=== PATIENT | male | born 1970 | race Caucasian/White ===

== ENCOUNTER 2016-03-26 06:36 | Day surgery (SDC) | payer MEDICAID ==
[2016-03-25 15:42] LABS: HEMATOCRIT 46.4 % (42.0-54.0); HEMOGLOBIN 15.3 g/dL (13.5-17.5); MCH 29.1 pg (26.0-34.0); MCV 88.2 fL (80.0-100.0); MEAN PLATELET VOLUME 10.8 fL (7.4-10.4); RBC 5.26 10x6/uL (4.20-6.10); RDW 15.2 % (11.5-14.5); WBC 8.6 10x3/uL (4.8-10.8)
[~2016-03-26] VITALS: Ht 180.3 cm; Wt 145.1 kg
[~2016-03-26 06:36] MED LIST: ABILIFY15 MG PO; ADVAIR 100/501 DISK INH; ATIVAN1 MG PO; BAYER CHEWABLE81 MG PO; COREG 3.1253.125 MG PO; CYMBALTA20 MG PO; HYDROCODONE-APA1 TAB PO; SYNTHROID175 MCG PO; VENTOLIN HFA18 GM INH; VENTOLIN/PR2 MG/5 ML PO; XANAX1 MG PO
[2016-03-26 07:45] VITALS: Ht 180.3 cm; Wt 145.1 kg
[2016-03-26] MEDS ORDERED: CYCLOBENZAPRINE10 MG PO (10:08)
[2016-03-26] MEDS ORDERED: HYDROCODONE-APA1 TAB PO (10:08)
--- NOTE | 2016-03-26 12:38 | NUR ---
1200CO PAIN PAIN MED GIVEN IV DC WITH CATHER TIP INTACT
--- NOTE | 2016-04-08 08:25 | HP ---
PATIENT: RUTHIE DICKEY MEDICAL RECORD: [id number] ACCOUNT: [id number] LOCATION:ROYAL : 74 ADMISSION DATE: 03/26/16 HISTORY AND PHYSICAL EXAMINATION HISTORY OF PRESENT ILLNESS: This is a 45-year-old gentleman who has been having shoulder pain. This has gone on 1st significant amount of time. He has had injections without relief. The recent injections have given him relief, but they continued to bother him. He at this juncture wants to proceed with a shoulder scope. He has history of arthritis of his knees. He has had sub-luxation of his patella with significant degenerative changes of his knees. He has had a trigger finger. He has taken Advair, alprazolam, Flovent, hydrocodone, hydroxyzine, imipramine, and Invega. He has had Kenalog injections. He has taken Latuda, levothyroxine, Naprosyn and triamcinolone ointment. He has no allergies. He has had a history of asthma, chest pain, depression and mental disorders as well as sleep apnea. He has previously had bilateral lateral releases of his knees, but has continued knee pain. He smokes daily. PHYSICAL EXAMINATION: VITAL SIGNS: His height 5 feet 11 inches, weight 320. Blood pressure 129/91 and pulse 96. HEENT: Within normal limits. CARDIOVASCULAR: Regular rate and rhythm. LUNGS: Clear. ABDOMEN: Benign. PHYSICAL EXAMINATION: Shoulder reveals painful forward flexion, painful abduction and external rotation. He has painful cross body adduction. He is tender at the acromion and the AC joint. There is no distinct weakness to abduction, internal or external rotation. He has decreased motion. He forward flexes to about 110 degrees, externally rotates 25 degrees, abducted to 90 degrees abduction, the external rotates to 45 degrees, the internal rotation just to the flank at 90 degrees, the internal rotation is about 30 degrees. His abduction to 110 degrees. Positive Durán and positive Neer's. ASSESSMENT: Left shoulder impingement, acromioclavicular joint degenerative joint disease and possible rotator cuff tear. We will go ahead and get him on the schedule for arthroscopy. TRANSINT:[id number] Voice Confirmation ID: [id number] DOCUMENT ID: [id number] HEMALATHA CHAPIN MD at 0825 CC: [id number] DICTATION DATE: 03/26/16 1003 MAGNETO ELECTRICIAN: 03/26/[address] [facility] 03/26/16 [id number] [place] [address]
--- NOTE | 2016-04-08 08:25 | OP ---
PATIENT NAME: RUTHIE DICKEY MEDICAL RECORD: [id number] :74 LOCATION:D.OPS ADMISSION DATE: SURGEON: HEMALATHA CHAPIN MD DATE OF OPERATION: 03/26/2016 PREOPERATIVE DIAGNOSES: Left shoulder impingement, left shoulder acromioclavicular joint degenerative joint disease and labral tear. POSTOPERATIVE DIAGNOSES: Left shoulder impingement, left shoulder acromioclavicular joint degenerative joint disease and labral tear. PROCEDURE PERFORMED: Left shoulder small labral debridement, distal clavicle excision and subacromial decompression. SURGEON: Sukhwinder Chapin MD ANESTHESIA: General with interscalene block for postop pain. CONDITION: The patient tolerated the procedure well, was transferred to the recovery room in stable condition at termination of the procedure. INDICATIONS: This is a 45-year-old gentleman who has had continued pain in his shoulder. He said at some therapy. He has had injections. This was held, but it does not resolve it. He continues to go on with the pain. He presents now wanting to go ahead and proceed with surgery. We discussed risks, benefits, and alternatives including continued pain. He understood and wished to proceed. OPERATIVE REPORT: The patient was taken to the operating room and placed in supine position. General anesthesia was obtained. His left shoulder was confirmed to be the correct shoulder. He was then prepped and draped in normal fashion. Portal sites were marked and injected with 0.25% Marcaine with epinephrine. I established the scope in the posterior portal. I established an anterior portal under direct visualization with a needle localization. I then proceeded to scope with the shaver. I was able to debride some of the labrum, glenohumeral joint looked very good. Biceps tendon did not have any lesions. Following the biceps tendon down, I could not see any tears and following the cuff around. His subscap looked very good. His anterior supraspinatus looked very good. The infraspinatus looked very good. I therefore brought the scope out, placed it in the subacromial space and took off some of the soft tissue with the shaver and then the Renee. I then started to use the negar. For some reason, the bur continued to increase the pressure of the water. I therefore, did go and short the spurs because of the changes it was causing on a water pressures. This was finally resolved. We did get some soft tissue swelling from the water infusion. I did take off his subacromial area and through the anterior portal was a distal clavicle. Once this was accomplished, the case was brought to a close. He was closed with 3-0 Prolene. He was placed in a sling. He was awakened and transferred to the recovery room in stable condition. TRANSINT:[id number] Voice Confirmation ID: [id number] DOCUMENT ID: [id number] OPERATIVE REPORT [id number] RUTHIE DICKEY, HEMALATHA HOGAN MD at 0825 CC: [id number] DICTATION DATE: 03/26/16 [address] [employer] PILOT: 03/26/16 1106 [facility] 03/26/16 [id number] [place] [address]
== END 2016-03-26 12:30 | disposition home or self-care (01) ==
LOC: D.OPS 06:36 → D.PAN 08:00 → D.OPS 08:30 → D.PAN 08:30 → D.OPS 08:45
PROVIDERS: Anesthesiology
DX: M75.42 Impingement syndrome of left shoulder (principal); M19.012 Primary osteoarthritis, left shoulder; S43.402A Unspecified sprain of left shoulder joint, initial encounter; J45.909 Unspecified asthma, uncomplicated; F32.9 Major depressive disorder, single episode, unspecified; G47.30 Sleep apnea, unspecified; F17.200 Nicotine dependence, unspecified, uncomplicated

== ENCOUNTER 2016-04-22 17:28 | Emergency (ER) | payer MEDICAID ==
[2016-03-26 07:45] VITALS: BMI 44.7
[~2016-04-22 17:28] MED LIST changes: +CYCLOBENZAPRINE10 MG PO
== END 2016-04-22 18:19 | disposition left against medical advice (07) ==
LOC: D.ER 17:28
DX: R10.30 Lower abdominal pain, unspecified (principal); F41.9 Anxiety disorder, unspecified; J44.9 Chronic obstructive pulmonary disease, unspecified

== ENCOUNTER 2016-06-07 22:04 | Emergency (ER) | payer MEDICAID ==
[2016-03-26 07:45] VITALS: BMI 44.7
[2016-06-07 23:10] LABS: BASOPHILS 0.3 % (0.0-2.0); EOSINOPHILS 1.5 % (0-7); HEMATOCRIT 44.6 % (42.0-54.0); HEMOGLOBIN 15.1 g/dL (13.5-17.5); IMMATURE GRANULOCYTES 0.3 % (0-5); LYMPHOCYTES 44.4 % (15-50); MCH 30.2 pg (26.0-34.0); MCHC 33.9 g/dL (31.0-37.0); MCV 89.2 fL (80.0-100.0); MEAN PLATELET VOLUME 10.8 fL (7.4-10.4); MONOCYTES 5.9 % (2-11); NEUTROPHILS 47.6 % (40-80); PLATELET COUNT 165 10x3/uL (130-400); RDW 15.7 % (11.5-14.5); WBC 8.8 10x3/uL (4.8-10.8)
[2016-06-07 23:38] LABS: ALKALINE PHOSPHATASE 124 U/L (46-116); ALT (SGPT) 65 U/L (10-68); BILIRUBIN - TOTAL 0.42 mg/dL (0.2-1.3); CALC OSMOLALITY 277 mosm/kg (275-300); CALCIUM 9.3 mg/dL (8.5-10.1); CARBON DIOXIDE 29.5 mmol/L (21.0-32.0); CHLORIDE - SERUM 102 mmol/L (98-107); CREATININE - SERUM 1.1 mg/dL (0.6-1.3); GLUCOSE 105 mg/dL (74-106); POTASSIUM - SERUM 3.4 mmol/L (3.5-5.1); PROTEIN - SERUM 8.5 g/dL (6.4-8.2); SODIUM 140 mmol/L (136-145); UREA NITROGEN 11 mg/dL (7-18); eGFR NON AFRICAN AMERICAN 78 mL/min (90-120)
[2016-06-07 23:43] LABS: PRO BNP 47 pg/mL (0-125); TROPONIN-I 0.019 ng/mL (0.000-0.060)
== END 2016-06-08 00:44 | disposition home or self-care (01) ==
LOC: D.ER 22:04
PROVIDERS: Family Medicine
DX: J44.1 Chronic obstructive pulmonary disease with (acute) exacerbation (principal); J20.9 Acute bronchitis, unspecified; J06.9 Acute upper respiratory infection, unspecified; F41.9 Anxiety disorder, unspecified; J44.9 Chronic obstructive pulmonary disease, unspecified; E03.9 Hypothyroidism, unspecified; E78.5 Hyperlipidemia, unspecified; E78.00 Pure hypercholesterolemia, unspecified; F17.200 Nicotine dependence, unspecified, uncomplicated

== ENCOUNTER 2017-07-15 05:32 | Day surgery (SDC) | payer MEDICAID ==
[~2017-07-15] VITALS: Ht 180.3 cm; Wt 146.5 kg
--- NOTE | ~2017-07-15 | OP ---
PATIENT NAME: RUTHIE DICKEY MEDICAL RECORD: [id number] :74 LOCATION:D.OPS ADMISSION DATE: SURGEON: BAM EDEN MD DATE OF OPERATION: 07/15/2017 PREOPERATIVE DIAGNOSES: 1. 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 2. Condyloma on an external hemorrhoid, right. POSTOPERATIVE DIAGNOSES: 1. 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 2. Condyloma on an external hemorrhoid, right. 3. Anal nodular skin lesion at 7 o'clock with the patient in the lithotomy position. PROCEDURE: 1. Excisional biopsy of left buttock skin lesion, likely condyloma, but this could also represent a squamous cell carcinoma within a condyloma. The dimensions of the excision, including margins, measured 6.2 x 4.8 cm. This was an intermediate closure. 2. Excisional biopsy of condyloma on an external hemorrhoid at 9 o'clock. 3. Excisional biopsy of nodular skin lesion at the anal verge at 7 o'clock. SURGEON: Bam Eden MD PHP WEB DEVELOPER: None. BLOOD LOSS: 50 cc. ANESTHESIA: General. COMPLICATIONS: None. The risks, possible complications and alternatives to the procedure were explained to the patient. He elects to proceed. OPERATIVE COURSE: The patient was conveyed to the operating room electively on 07/15/2017. General anesthesia was induced by the anesthesia staff. The patient was placed in the lithotomy position. The buttocks and anus were sterilely prepped and draped. I grasped the condyloma on the external hemorrhoid at 9 o'clock. I then excised this condyloma utilizing the Harmonic scalpel. No sutures were needed. I then placed U-shaped anal retractors within the anus. I noted no evidence of an anal fistula. No evidence of an anal fissure. There was a nodular anal lesion at 7 o'clock. This was removed by grasping it and excising it with the Harmonic scalpel. No suture closure was necessary. Through the use of double curvilinear incisions, I excised the skin and subcutaneous tissues around a condyloma of the left buttock. Some additional indurated tissue was excised at the base of the excision. The subcutaneous flaps were created sharply. The dimensions of the excision are listed above. The subdermis was approximated with interrupted 2-0 Vicryl sutures. The skin was approximated with multiple interrupted 2-0 horizontal mattress Vicryls. Sterile dressings were applied. OPERATIVE REPORT [id number] RUTHIE DICKEY The patient was then extubated and conveyed to the post-anesthesia care unit where he was in stable condition. He will be dismissed home on [place] as well as Keflex. I will see him in the office in 2-3 weeks. TRANSINT:[id number] Voice Confirmation ID: [id number] DOCUMENT ID: [id number] CC: Libby Monzon APN, [facility] [place] BAM EDEN MD at 1157 CC: [id number] DICTATION DATE: 07/15/17 0957 SOFTWARE ASSET MANAGEMENT ANALYST: 07/15/17 1244 [facility] 07/15/17 [id number] [place] [address]
[~2017-07-15 05:32] MED LIST changes: +REXULTI1 MG PO
[2017-07-15 06:26] LABS: HEMATOCRIT 45.1 % (42.0-54.0); HEMOGLOBIN 14.6 g/dL (13.5-17.5); MCH 30.2 pg (26.0-34.0); MCHC 32.4 g/dL (31.0-37.0); MCV 93.2 fL (80.0-100.0); MEAN PLATELET VOLUME 10.5 fL (7.4-10.4); RBC 4.84 10x6/uL (4.20-6.10); RDW 14.7 % (11.5-14.5); WBC 7.2 10x3/uL (4.8-10.8)
[2017-07-15 06:37] VITALS: BP 104/63; Ht 180.3 cm; Wt 146.5 kg
== END 2017-07-15 11:45 | disposition home or self-care (01) ==
LOC: D.OPS 05:32 → D.PAN 08:00 → D.OPS 11:45
PROVIDERS: Anesthesiology
DX: A63.0 Anogenital (venereal) warts (principal); I25.2 Old myocardial infarction; I10 Essential (primary) hypertension; E78.00 Pure hypercholesterolemia, unspecified; J44.9 Chronic obstructive pulmonary disease, unspecified; J45.909 Unspecified asthma, uncomplicated; F17.200 Nicotine dependence, unspecified, uncomplicated; F41.9 Anxiety disorder, unspecified; M19.90 Unspecified osteoarthritis, unspecified site; E03.9 Hypothyroidism, unspecified; Z01.812 Encounter for preprocedural laboratory examination

== ENCOUNTER → 2017-09-22 08:37 | Outpatient (CLI) | payer MEDICAID ==
[2017-07-15 06:37] VITALS: BMI 45.1
[2017-09-23 11:19] LABS: IMMUNOGLOBULIN A 209 mg/dL (90-386); IMMUNOGLOBULIN G 1695 mg/dL (700-1600)
[2017-09-24 20:07] LABS: IMMUNOGLOBULIN E 57 IU/mL (0-100)
== END | disposition home or self-care (01) ==
LOC: D.RT 08:00
PROVIDERS: Internal Medicine Pulmonary Disease
DX: J44.9 Chronic obstructive pulmonary disease, unspecified (principal)

== ENCOUNTER → 2017-11-03 10:39 | Outpatient (CLI) | payer MEDICAID ==
[2017-07-15 06:37] VITALS: BMI 45.1
== END | disposition home or self-care (01) ==
LOC: D.RT 10-25 14:30
DX: J44.9 Chronic obstructive pulmonary disease, unspecified (principal)

== ENCOUNTER 2018-01-25 16:31 | Inpatient (IN) | payer MEDICAID ==
[~2018-01-25] VITALS: Ht 180.3 cm; Wt 160.2 kg
--- NOTE | ~2018-01-25 | MORECARE ---
CASE MANAGEMENT DISCHARGE SUMMARY PATIENT: RUTHIE DICKEY KAMARI UNIT: [id number] ADM DATE: 01/25/18 AGE: 47 : 74 SEX: M ROOM/BED: D.2132 AUTHOR: ADAN MCGARRY PHYSICIAN: REFERRING PHYSICIAN: SOPHIE BA MD DATE OF SERVICE: 01/30/18 Discharge Plan Patient Name: RUTHIE DICKEY [facility] [place] : 1970 Planned Disposition: Home Anticipated Discharge Date: 01/29/18 Discharge Date: 01/29/2018 Expected LOS: 4 Initial Reviewer: [email or web address] Initial Review Date: 01/30/2018 Generated: 01/30/18 10:23 am Patient Name: RUTHIE DICKEY Page [id number] at 0923 All edits/amendments must be made on the electronic document DICTATION DATE: 01/30/18922 [employer] AIRCRAFT MECHANIC: GEOVANY 01/30/18922 RPT#: [id number] DC DATE:01/29/18 STATUS: DIS IN [facility] [address] [place] [address] END OF REPORT
--- NOTE | ~2018-01-25 | EC ---
PATIENT:RUTHIE DICKEY DATE OF SERVICE: 01/25/18 SEX: M MEDICAL RECORD: [id number] DATE OF : 74 LOCATION:D. D.213 AGE OF PATIENT: 47 ADMISSION DATE: 01/25/18 REFERRING PHYSICIAN: INTERPRETING PHYSICIAN: ASHLIE DELGADO MD ECHOCARDIOGRAM REPORT ECHO CHARGES 4 ECHO COMPLETE Date: 01/26/18 CLINICAL DIAGNOSIS: DYSPNEA ECHOCARDIOGRAPHIC MEASUREMENTS (adult normal given) AC root (d.<3.7cm) 4.7 cm LV Septum d (<1.2 cm> 2.0 cm Valve Excursion 1.9 cm LV Septum (systole) 2.4 cm Left Atria (s.<4.0cm> 4.7 cm LVPW d(<1.2cm) 2.1 cm RV (d.<2.3cm) 4.5 cm LVPW (sytole) 2.7 cm LV diastole(<5.6CM) 4.8 cm MV E-F(>70mm/sec) cm LV systole 3.1 cm LVOT Diameter 2.3 cm MV exc.(>10mm) 1.6 cm Est.ejection fraction (50-75%) % DOPPLER: LVIT cm/sec A 75.0 cm/sec E 101 cm/sec LA cm/sec RVSP 20 mmHg LVOT 106 cm/sec AOP1/2T m/s Asc. Ao 153 cm/sec RVOT 98 cm/sec RA cm/sec PA 1155 cm/sec AV Gradient Peak 9.31 mmHg AV Mean 4.96 mmHg AV Area 3.1 cm MV Gradient Peak 6.19 mmHg MV Mean 2.51 mmHg MV Area cm COMMENTS: Sales Commissions Analyst: Giulia GUNN Conveyor Belt Repairer: 1 Dr. Delgado TAPE# PACS Pericardial Effusion Y DATE OF SERVICE: 01/26/2018 FINDINGS: 1. Left ventricular chamber size is within normal limits. Left ventricular systolic function is normal. Overall ejection fraction is estimated at 60%. 2. Left atrium is enlarged at 4.7 cm. Right atrium and right ventricle chamber size is mild to moderately dilated as well. 3. Valvular structures have normal structure and motion. 4. Doppler interrogation reveals no significant valvular insufficiency or stenosis. ECHOCARDIOGRAM REPORT [id number] HEIDI DICKEYMY BENITES 5. No evidence of pericardial effusion or left ventricular thrombus. TRANSINT:[id number] Voice Confirmation ID: [id number] DOCUMENT ID: [id number] ASHLIE DELGADO MD at 1856 CC: [id number] DICTATION DATE: 01/26/18 154 EDUCATIONAL FUNDRAISING DIRECTOR: 01/26/181909 ADM IN [facility] [address] [place] [address]
--- NOTE | ~2018-01-25 | CN ---
PATIENT NAME:RUTHIE BENNETT MEDICAL RECORD: [id number] : 74 LOCATION:D.M2 D.2132 ADMIT DATE: 01/25/18 ACCOUNT: [id number] CONSULTING PHYSICIAN: SUZETTE GALDAMEZ MD REFERRING PHYSICIAN: RIP ANDRADE MD DATE OF CONSULTATION: 01/26/2018 CONSULT REQUESTING PHYSICIAN: Rip Andrade MD REASON FOR CONSULTATION: Aygsl-xn-mrxtonp hypoxic hypercapnic respiratory failure, generalized swelling. HISTORY OF PRESENT ILLNESS: Mr. Bennett is a 47-year-old gentleman who was seen in Dr. Gant's office yesterday. The patient was hypoxic. He was very sleepy and lethargic. The patient was sent into the ER. ABG; the pCO2 was 72 and the pH was 7.3. Now, he is more awake and alert. He also has worsening swelling bilaterally. The CTA, rule out any PE, but he has a moderate large sized pericardial effusion. REVIEW OF SYSTEMS: As in history of present illness. PAST MEDICAL HISTORY: 1. COPD. 2. Obstructive sleep apnea. 3. Gastroesophageal reflux disease. 4. Allergic rhinitis. 5. Swelling of the lower extremities. 6. Tobacco dependence syndrome. 7. Chronic cough. 8. Hypertension. 9. Arthritis. 10. Osteoarthritis of the knee. PAST SURGICAL HISTORY: He has a knee surgery. ALLERGIES: There are no known drug allergies. MEDICATIONS: [employer] is reviewed. PERSONAL AND SOCIAL HISTORY: The patient is still continuing to smoke. FAMILY HISTORY: Noncontributory. PHYSICAL EXAMINATION: GENERAL: Now, the patient is lying comfortably. He is not in acute distress. The patient is awake and alert. VITAL SIGNS: The blood pressure is 138/93, pulse is 101, respiration 20, temperature 98.2, and SpO2 is 91% on 10 liter oxymizer. HEENT: Conjunctivae are pink. Sclerae nonicteric. NECK: Supple, no JVD. CHEST: The chest excursion is minimal on both. No wheeze, no rales. HEART: The heart sounds are distant. There is no murmur. ABDOMEN: Soft, bowel sounds present. No hepatosplenomegaly. RECTAL: Deferred. EXTREMITIES: No cyanosis, no clubbing. There are 2+ pedal edema. CONSULT REPORT [id number] NOBLERUTHIE KAMARI IMAGING: CTA of the chest: There is no PE. There is limited evaluation. There are marked cardiomegaly with uixjxzoq-xt-reeer pericardial effusion. Enlargement of the main pulmonary trunk suggest possible underlying pulmonary hypertension. RECOMMENDATION: 1. Continue albuterol/ipratropium nebulizer. 2. Check the ammonia level. 3. Check the cardiac echo. 4. Consult Dr. Delgado. 5. Supplemental oxygen. 6. Continue Lasix. 7. We will start him on Diamox. 8. GERD precaution given. 9. The patient can use the CPAP or BiPAP at night. Follow up labs and chest radiograph. Dr. Andrade, thank you for involving me in the care of Mr. Bennett. TRANSINT:[id number] Voice Confirmation ID: [id number] DOCUMENT ID: [id number] SUZETTE GALDAMEZ MD at 1711 CC: [id number] DICTATION DATE: 01/26/18 1654 SENIOR ORACLE ADF DEVELOPER: 01/26/188 DIS IN 01/29/18 [address] [place] [address]
[2018-01-25 17:04] LABS: BASOPHILS 0.3 % (0-2); EOSINOPHILS 1.3 % (0-7); HEMATOCRIT 47.1 % (42.0-54.0); HEMOGLOBIN 13.4 g/dL (13.5-17.5); LYMPHOCYTES 27.6 % (15-50); MCHC 28.5 g/dL (31.0-37.0); MCV 84.4 fL (80.0-100.0); MONOCYTES 4.6 % (2-11); NEUTROPHILS 65.2 % (40-80); RBC 5.58 10x6/uL (4.20-6.10); WBC 7.8 10x3/uL (4.8-10.8)
[2018-01-25 17:09] LABS: PLATELET COUNT 107 10x3/uL (130-400)
[2018-01-25 17:17] VITALS: BP 143/101
[2018-01-25 17:19] LABS: APTT 21.1 SECONDS (22.8-39.4); INR 0.93 (0.85-1.17)
[2018-01-25 17:31] LABS: ALKALINE PHOSPHATASE 122 U/L (46-116); ALT (SGPT) 20 U/L (10-68); BILIRUBIN - TOTAL 0.37 mg/dL (0.2-1.3); CALCIUM 8.3 mg/dL (8.5-10.1); CARBON DIOXIDE 35.2 mmol/L (21.0-32.0); CHLORIDE - SERUM 94 mmol/L (98-107); CREATININE - SERUM 0.9 mg/dL (0.6-1.3); PROTEIN - SERUM 8.5 g/dL (6.4-8.2); SODIUM 134 mmol/L (136-145); UREA NITROGEN 7 mg/dL (7-18); eGFR NON AFRICAN AMERICAN > 90 mL/min (90-120)
[2018-01-25 17:43] LABS: CKMB 2.2 U/L (0.0-3.6); CREATINE KINASE 101 UL (21-232); PRO BNP 1372 pg/mL (0-125)
[2018-01-25 17:51] LABS: CALC OSMOLALITY 271 mosm/kg (275-300); GLUCOSE 208 mg/dL (74-106); TROPONIN-I < 0.017 ng/mL (0.000-0.060)
[2018-01-25 18:01] VITALS: BP 133/89
[2018-01-25 19:02] VITALS: BP 134/84
[2018-01-25 22:10] VITALS: BP 133/86; BMI 53.0
[2018-01-26 00:47] VITALS: BP 161/101
[2018-01-26 04:00] VITALS: BP 145/89
[2018-01-26 08:16] VITALS: BP 138/95
[2018-01-26 08:18] LABS: BASOPHILS 0.1 % (0-2); EOSINOPHILS 0.1 % (0-7); HEMATOCRIT 45.4 % (42.0-54.0); HEMOGLOBIN 12.7 g/dL (13.5-17.5); IMMATURE GRANULOCYTES 0.7 % (0-5); LYMPHOCYTES 11.4 % (15-50); MCV 85.8 fL (80.0-100.0); MEAN PLATELET VOLUME 10.7 fL (7.4-10.4); MONOCYTES 4.3 % (2-11); NEUTROPHILS 83.4 % (40-80); RBC 5.29 10x6/uL (4.20-6.10); RDW 18.2 % (11.5-14.5)
[2018-01-26 08:24] LABS: PLATELET COUNT 190 10x3/uL (130-400); WBC 12.1 10x3/uL (4.8-10.8)
[2018-01-26 08:29] LABS: CALCIUM 8.2 mg/dL (8.5-10.1); CARBON DIOXIDE 35.4 mmol/L (21.0-32.0); CHLORIDE - SERUM 94 mmol/L (98-107); CREATININE - SERUM 1.1 mg/dL (0.6-1.3); SODIUM 133 mmol/L (136-145); eGFR NON AFRICAN AMERICAN 77 mL/min (90-120)
[2018-01-26 08:41] LABS: CALC OSMOLALITY 274 mosm/kg (275-300); GLUCOSE 283 mg/dL (74-106); POTASSIUM - SERUM 5.1 mmol/L (3.5-5.1); UREA NITROGEN 11 mg/dL (7-18)
[2018-01-26 11:37] VITALS: BP 144/102
[2018-01-26 14:14] VITALS: BMI 52.8
[2018-01-26] MEDS ORDERED: NORCO 7.5/325 T1 TA1 PO (14:25)
[2018-01-26 15:30] VITALS: BP 138/93
[2018-01-26 20:00] VITALS: BP 119/78
[2018-01-27] VITALS: BP 143/88
[2018-01-27 04:00] VITALS: BP 139/101
[2018-01-27 05:13] LABS: BASOPHILS 0.1 % (0-2); EOSINOPHILS 0.1 % (0-7); HEMATOCRIT 46.3 % (42.0-54.0); HEMOGLOBIN 12.6 g/dL (13.5-17.5); IMMATURE GRANULOCYTES 0.8 % (0-5); LYMPHOCYTES 13.2 % (15-50); MCH 23.8 pg (26.0-34.0); MCHC 27.2 g/dL (31.0-37.0); MCV 87.4 fL (80.0-100.0); MEAN PLATELET VOLUME 10.6 fL (7.4-10.4); MONOCYTES 6.8 % (2-11); PLATELET COUNT 201 10x3/uL (130-400); RDW 18.5 % (11.5-14.5); WBC 14.2 10x3/uL (4.8-10.8)
[2018-01-27 05:42] LABS: ALBUMIN 3.1 g/dL (3.4-5.0); ALKALINE PHOSPHATASE 115 U/L (46-116); ALT (SGPT) 17 U/L (10-68); BILIRUBIN - TOTAL 0.43 mg/dL (0.2-1.3); CALCIUM 8.2 mg/dL (8.5-10.1); CARBON DIOXIDE 33.8 mmol/L (21.0-32.0); CHLORIDE - SERUM 91 mmol/L (98-107); CREATININE - SERUM 1.1 mg/dL (0.6-1.3); POTASSIUM - SERUM 5.3 mmol/L (3.5-5.1); PROTEIN - SERUM 9.1 g/dL (6.4-8.2); SODIUM 130 mmol/L (136-145); eGFR NON AFRICAN AMERICAN 77 mL/min (90-120)
[2018-01-27 05:43] LABS: CALC OSMOLALITY 278 mosm/kg (275-300); GLUCOSE 388 mg/dL (74-106); UREA NITROGEN 17 mg/dL (7-18)
[2018-01-27 08:05] VITALS: BP 144/99
[2018-01-27 09:30] VITALS: Ht 180.3 cm; Wt 160.2 kg
[2018-01-27 11:52] VITALS: BP 151/99
[2018-01-27 21:08] VITALS: BP 129/78
[2018-01-28] VITALS: BP 148/108
[2018-01-28 04:00] VITALS: BP 146/102
[2018-01-28 06:34] LABS: BASOPHILS 0.1 % (0-2); EOSINOPHILS 0 % (0-7); HEMATOCRIT 46.6 % (42.0-54.0); HEMOGLOBIN 12.9 g/dL (13.5-17.5); LYMPHOCYTES 19.7 % (15-50); MCHC 27.7 g/dL (31.0-37.0); MCV 86.6 fL (80.0-100.0); MEAN PLATELET VOLUME 10.6 fL (7.4-10.4); MONOCYTES 6.2 % (2-11); PLATELET COUNT 204 10x3/uL (130-400); RBC 5.38 10x6/uL (4.20-6.10); RDW 18.2 % (11.5-14.5); WBC 13.1 10x3/uL (4.8-10.8)
[2018-01-28 07:07] LABS: ALBUMIN 3.1 g/dL (3.4-5.0); ALKALINE PHOSPHATASE 111 U/L (46-116); ALT (SGPT) 20 U/L (10-68); BILIRUBIN - TOTAL 0.39 mg/dL (0.2-1.3); CALCIUM 8.3 mg/dL (8.5-10.1); CHLORIDE - SERUM 92 mmol/L (98-107); GLUCOSE 358 mg/dL (74-106); SODIUM 128 mmol/L (136-145); THYROID STIMULATING HORMONE 15.72 uIU/mL (0.36-3.74); eGFR NON AFRICAN AMERICAN 86 mL/min (90-120)
[2018-01-28 07:11] LABS: CALC OSMOLALITY 273 mosm/kg (275-300); POTASSIUM - SERUM 4.3 mmol/L (3.5-5.1); UREA NITROGEN 22 mg/dL (7-18)
[2018-01-28 08:34] VITALS: BP 125/81
[2018-01-28 12:05] VITALS: BP 121/80
[2018-01-28 16:55] VITALS: BP 127/79
[2018-01-28 20:00] VITALS: BP 125/77
[2018-01-29] VITALS: BP 123/59
[2018-01-29 04:00] VITALS: BP 133/74
[2018-01-29 05:45] LABS: BASOPHILS 0.1 % (0-2); EOSINOPHILS 0 % (0-7); HEMOGLOBIN 12.9 g/dL (13.5-17.5); IMMATURE GRANULOCYTES 0.8 % (0-5); LYMPHOCYTES 21.3 % (15-50); MCH 23.8 pg (26.0-34.0); MCV 84.9 fL (80.0-100.0); MEAN PLATELET VOLUME 11.2 fL (7.4-10.4); MONOCYTES 8.4 % (2-11); NEUTROPHILS 69.4 % (40-80); PLATELET COUNT 214 10x3/uL (130-400); RBC 5.42 10x6/uL (4.20-6.10); RDW 18.1 % (11.5-14.5); WBC 11.9 10x3/uL (4.8-10.8)
[2018-01-29 06:09] LABS: ALBUMIN 3.1 g/dL (3.4-5.0); ALKALINE PHOSPHATASE 97 U/L (46-116); ALT (SGPT) 23 U/L (10-68); BILIRUBIN - TOTAL 0.43 mg/dL (0.2-1.3); CALC OSMOLALITY 283 mosm/kg (275-300); CALCIUM 8.3 mg/dL (8.5-10.1); CARBON DIOXIDE 36.4 mmol/L (21.0-32.0); CHLORIDE - SERUM 94 mmol/L (98-107); CREATININE - SERUM 1.1 mg/dL (0.6-1.3); GLUCOSE 354 mg/dL (74-106); MAGNESIUM - SERUM 1.9 mg/dL (1.8-2.4); SODIUM 132 mmol/L (136-145); UREA NITROGEN 27 mg/dL (7-18); eGFR NON AFRICAN AMERICAN 77 mL/min (90-120)
[2018-01-29 09:24] VITALS: BP 135/100
[2018-01-29 13:28] VITALS: BP 136/109
[2018-01-29] MEDS ORDERED: COREG 3.1253.125 MG PO (14:58)
[2018-01-29] MEDS ORDERED: LASIX40 MG PO (14:58)
[2018-01-29] MEDS ORDERED: MEDROL DOSE PACK4 MG PO (14:59)
[2018-01-29] MEDS ORDERED: ACETAZOLAMIDE250 MG PO (14:59)
[2018-01-29] MEDS ORDERED: Nicoderm [PBKC] TRANSDERM (14:59)
== END 2018-01-29 17:02 | disposition home or self-care (01) | DRG 291 ==
LOC: D.ER 16:31 → D.M2 17:23 → D.EDHOLD 17:23 → D.M2 18:12
PROVIDERS: Emergency Medicine
DX: I11.0 Hypertensive heart disease with heart failure (principal); J96.22 Acute and chronic respiratory failure with hypercapnia; J96.21 Acute and chronic respiratory failure with hypoxia; I31.3 Pericardial effusion (noninflammatory); Z68.43 Body mass index [BMI] 50.0-59.9, adult; J44.1 Chronic obstructive pulmonary disease with (acute) exacerbation; E66.2 Morbid (severe) obesity with alveolar hypoventilation; I50.33 Acute on chronic diastolic (congestive) heart failure; F20.9 Schizophrenia, unspecified; F32.9 Major depressive disorder, single episode, unspecified; F41.8 Other specified anxiety disorders; K21.9 Gastro-esophageal reflux disease without esophagitis; J30.9 Allergic rhinitis, unspecified